=== PATIENT | female | born 1990 | race African-American/Black ===

== ENCOUNTER 2017-11-09 14:26 | Emergency (ER) | payer SELFPAY ==
[~2017-11-09] VITALS: Ht 154.9 cm; Wt 82.0 kg
[2017-11-09 14:46] VITALS: BP 140/86; PULSE 95; RESP 16; TEMP 97.9; O2SAT 99
--- NOTE | 2017-11-09 15:36 | PD ---
HPI Chief Complaint: ENT Complaint Time Seen by Provider: 14:49 Travel History International Travel<30 days: No Contact w/Intl Traveler<30days: No Traveled to known affect area: No History of Present Illness HPI 27-year-old female presents to the emergency department for evaluation of nasal congestion, sore throat that started yesterday. She denies any fevers. No chest pain or shortness of breath. No abdominal pain. No nausea, vomiting, diarrhea. She reports no chronic medical problems and takes no prescribed medications. She denies any chance of . Current pain is 7/10 without radiation, aching. Mild severity. PFSH Past Medical History ?: Not Social History Alcohol Use: Yes (socially) Tobacco Use: No Substance Use: Yes (marijuana) Allergies-Medications (Allergen,Severity, Reaction): Coded Allergies: No Known Allergies (Unverified , 11/09/17) Reported Meds & Prescriptions Reported Meds & Active Scripts Active No Active Prescriptions or Reported Medications Review of Systems Except as stated in HPI: all other systems reviewed are Neg Physical Exam Narrative GENERAL: Well-nourished, well-developed female patient, ambulatory. Afebrile. SKIN: Focused skin assessment warm/dry. HEAD: Normocephalic. Atraumatic. ENT: Mucosa pink and moist. Mild erythema without exudates. No uvular edema. No uvular, palatal, or tonsillar deviation. Airway patent. Nasal turbinates appear normal without nasal blood, purulent drainage or septal hematoma. Bilateral tympanic membranes are clear without erythema or perforation. EYES: No scleral icterus. No injection or drainage. NECK: Supple, trachea midline. No JVD or lymphadenopathy. CARDIOVASCULAR: Regular rate and rhythm without murmurs, gallops, or rubs. RESPIRATORY: Breath sounds equal bilaterally. No accessory muscle use. Lungs sounds are clear to auscultation. GASTROINTESTINAL: Abdomen soft, non-tender, nondistended. MUSCULOSKELETAL: No cyanosis, or edema. BACK: Nontender without obvious deformity. No CVA tenderness. Data Data Last Documented VS Vital Signs Date Time Temp Pulse Resp B/P (MAP) Pulse Ox O2 Delivery O2 Flow Rate FiO2 11/09/17 14:46 97.9 95 16 140/86 (104) 99 Orders Orders Group A Rapid Strep Screen (11/09/17 15:34) Strep Culture (Group A) (11/09/17 15:48) [facility] Medical Decision Making Medical Screen Exam Complete: Yes Emergency Medical Condition: Yes Medical Record Reviewed: Yes Differential Diagnosis Strep pharyngitis versus viral pharyngitis versus URI Narrative Course 27-year-old female presents to the emergency department for evaluation of nasal congestion, sore throat. She appears well on exam. Strep swab is ordered and pending. Strep is negative. Patient will be discharged with a prescription for Flonase nasal spray, Sally. Patient started to rest, drink plenty of fluids. Patient is requesting antibiotic. However, this appears to be a viral infection and antibiotics are not indicated. Patient is educated on this. The patient was discharged in stable condition with instructions, including return instructions and follow up instructions. Diagnosis Primary Impression: Viral upper respiratory infection Referrals: Primary Care Physician call for appointment Patient Instructions: General Instructions, Upper Respiratory Infection (ED) Departure Forms: Tests/Procedures, Work Release Enter return to work date: Nov 12, 2017 Additional Instructions: [id number] Tylenol every 4 hours as needed, [id number] ibuprofen every 6-8 hours as needed. Use Flonase nasal spray as directed. Take Sally daily. Follow-up with your primary care physician. Return to the emergency department for any acute worsening of symptoms. Med/Other Pt SpecificInfo: Prescription(s) given Scripts Fexofenadine (Sally Allergy) 180 Mg Tab 180 MG PO DAILY for Allergy Management, #30 TAB 0 Refills Prov: Maida Marx 11/09/17 Fluticasone Nasal [place] (Flonase Nasal [place]) 50 Mcg/Act [place] 50 MCG EACH NARE BID for Allergies, #1 BOTTLE 0 Refills Prov: Maida Marx 11/09/17 Disposition: 01 DISCHARGE HOME Condition: Stable Maida Marx Nov 09, 2017 15:36
[2017-11-09] MEDS ORDERED: FLUT1SPR5 EACH NARE (17:46)
[2017-11-09] MEDS ORDERED: FEXO15TA PO (17:46)
== END 2017-11-09 18:14 | disposition home or self-care (01) ==
LOC: NEPK 14:26
DX: J06.9 Acute upper respiratory infection, unspecified (principal)
CPT/HCPCS: 87081; 87880; 99283